=== PATIENT | female | born 1960 | race Caucasian/White ===

== ENCOUNTER 2025-01-12 12:42 | Emergency (ER) | payer MEDICARE ==
[~2025-01-12] VITALS: Ht 175.3 cm; Wt 52.5 kg
[2025-01-12 12:45] VITALS: BP 171/80; PULSE 100; RESP 16; O2SAT 97
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
[2025-01-12 14:02] VITALS: TEMP 98.1
== END 2025-01-12 14:04 | disposition home or self-care (01) ==
LOC: ER 12:44
DX: M54.2 Cervicalgia (principal)
CPT/HCPCS: 99281; 99282